=== PATIENT | male | born 1980 | race Caucasian/White ===

== ENCOUNTER 2020-08-26 21:19 | Emergency (ER) | payer OTHER ==
[~2020-08-26] VITALS: Ht 172.7 cm; Wt 90.7 kg
[~2020-08-26 21:19] MED LIST: Inderal 20 mg T20 MG PO; TRAM50 PO
[2020-08-26] MEDS ORDERED: IBUP800 PO (22:57)
== END 2020-08-27 00:02 | disposition home or self-care (01) ==
LOC: ER 21:19
DX: S82.892A Other fracture of left lower leg, initial encounter for closed fracture (principal); Z88.5 Allergy status to narcotic agent; Z87.891 Personal history of nicotine dependence; X50.1XXA Overexertion from prolonged static or awkward postures, initial encounter
CPT/HCPCS: 29515; 73610; 99283-25; A9270